=== PATIENT | male | born 1985 | race African-American/Black ===

== ENCOUNTER 2018-10-28 14:04 | Inpatient (IN) | payer OTHER ==
[2018-10-28 15:47] VITALS: BMI 34.2
--- NOTE | 2018-10-28 19:20 | HP ---
CIWA Score - Admission Criteria [facility]ASAS Guidelines: Admission for Medically Managed Detox: Requires at least one of the followin. CIWA greater than 12 2. Seizures within the past 24 hours 3. Delirium tremens within the past 24 hours 4. Hallucinations within the past 24 hours 5. Acute intervention needed for co occurring medical disorder 6. Acute intervention needed for co occurring psychiatric disorder 7. Severe withdrawal that cannot be handled at a lower level of care (continued vomiting, continued diarrhea, abnormal vital signs) requiring intravenous medication and/or fluids 8. Admission ROS S - HPI Chief Complaint: rehab from K2 33 yo old with schizoaffective d/o, anxiety, bipoar, resident of [facility] facility- here b/c he is tired of using multiple illicit substances that are freely available at the facility. h/o diabetes on insulin K2- 2-3 cigs/day THC- 2 blunts/day cocaine- occ use- was offered 2 days ago alcohol occ use heroin- never used DUR- no meds Allergies/Adverse Reactions: Allergies Allergy/AdvReac Type Severity Reaction Status Date / Time Fish Containing Products Allergy Intermediate Nausea Verified 10/28/18 15:35 - Ebola screening Have you traveled outside of the country in the last 21 days: No Have you had contact with anyone from an Ebola affected area: No Do you have a fever: No Patient History - Patient Medical History Hx Diabetes: Yes Hx Bipolar Disorder: Yes Hx Schizophrenia: Yes - Patient Surgical History Past Surgical History: No - PPD History Previous Implant?: No Documented Results: Negative w/o proof - Smoking Cessation Smoking history: Current every day smoker Have you smoked in the past 12 months: Yes Aproximately how many cigarettes per day: 5 Hx Chewing Tobacco Use: No Initiated information on smoking cessation: Yes 'Breaking Loose' booklet given: 10/28/18 - Substances abused K2/Spice Substance route: Smoking Frequency: Daily Amount used: $40 Age of first use: 27 Date of last use: 10/28/18 Cocaine Substance route: Inhalation Frequency: 1-2 times per week Amount used: 1bag Age of first use: 21 Date of last use: 10/25/18 Marijuana/Hashish Substance route: Smoking Frequency: Daily Amount used: $10 Age of first use: 15 Date of last use: 10/26/18 Family Disease History - Family Disease History Family History: Unable to Obtain (pt is adopted) Admission Physical Exam BHS - Vital Signs Vital Signs: Vital Signs - 24 hr 10/28/18 15:27 Temperature 97.4 F L Pulse Rate 72 Respiratory 18 Rate Blood Pressure 102/66 - Physical General Appearance: Yes: Within Normal Limits, Obese HEENTM: Yes: Within Normal Limits, EOMI, Hearing grossly Normal, Normocephalic, Normal Voice, DANK Respiratory: Yes: Within Normal Limits, Lungs Clear Neck: Yes: Within Normal Limits Cardiology: Yes: Within Normal Limits, Regular Rate Abdominal: Yes: Within Normal Limits Genitourinary: Yes: Within Normal Limits Back: Yes: Within Normal Limits Musculoskeletal: Yes: Within Normal Limits Extremities: Yes: Within Normal Limits Neurological: Yes: Within Normal Limits, process description writer II-XII NML intact, Fully Oriented Integumentary: Yes: Within Normal Limits, Normal Color Lymphatic: Yes: Within Normal Limits - Diagnostic (1) Schizoaffective disorder Current Visit: Yes Status: Acute (2) Personality disorder Current Visit: Yes Status: Acute (3) Bipolar 1 disorder Current Visit: Yes Status: Acute (4) Diabetes Current Visit: Yes Status: Acute (5) Marijuana smoker Current Visit: Yes Status: Acute (6) Alcohol use Current Visit: Yes Status: Acute (7) Cocaine abuse Current Visit: Yes Status: Acute Breathalyzer - Breathalyzer Breathalyzer: 0 Urine Drug Screen - Test Device Lot number: [id number] Expiration date: 07/10/20 - Control Is test valid?: Yes - Results Drug screen NEGATIVE: Yes Inpatient Rehab Admission - Rehab Decision to Admit Inpatient rehab admission?: Yes - Initial Determination Are CD services needed?: Yes Free of communicable disease: Yes Not in need of hospitalization: Yes - Rehab Admission Criteria Previous failed treatment: Yes Poor recovery environment: Yes Comorbidities: Yes Lacks judgement: Yes Patient is meeting Inpatient Rehab admission criteria:: Yes (K2 rehab)
[2018-10-28] MEDS ORDERED: ACETAMINOPHEN 325 MG TABLET (FP) PO PRN (19:26)
[2018-10-28] MEDS ORDERED: hydrOXYzine PAMOATE 25 MG CAPSULE (FP) PO PRN (19:26)
[2018-10-28] MEDS ORDERED: MAG HYDROX/AL HYDROX/SIMETH 30 ML UNIT-DOSE CUP PO PRN (19:26)
[2018-10-28] MEDS ORDERED: P-EPHED 60MG/TRIPROLIDI 2.5MG TABLET PO PRN (19:26)
[2018-10-28] MEDS ORDERED: MAGNESIUM HYDROX 2400MG/30ML ORAL SUSPENSION 30 ML CUP PO PRN (19:26)
[2018-10-28] MEDS ORDERED: MAGNESIUM CITRATE 300 ML BOTTLE PO PRN (19:26)
[2018-10-28] MEDS ORDERED: IBUPROFEN 400 MG TABLET (FP) PO PRN (19:26)
[2018-10-28] MEDS ORDERED: guaiFENesin 200 MG/10 ML 10 ML UNIT-DOSE CUPS PO PRN (19:26)
[2018-10-28] MEDS ORDERED: LOPERAMIDE HCL 2 MG CAPSULE PO PRN (19:26)
[2018-10-28] MEDS ORDERED: MENTHOL/PHENOL 1 EACH UD MM PRN (19:26)
[2018-10-28] MEDS: QUEtiapine FUMARATE 50 MG TABLET PO SCH (21:08)
[2018-10-28] MEDS: DIVALPROEX SODIUM 500 MG TABLET E.C. PO SCH (21:08)
[2018-10-28] MEDS: THIAMINE HCL 100 MG TABLET (FP) PO SCH (21:08)
[2018-10-28] MEDS ORDERED: MELATONIN 5 MG TABLETS PO PRN (22:00)
[2018-10-29] MEDS: INSULIN SLIDING SCALE (NOVOLOG) 1 VIAL SQ SCH ×3 (07:14→16:52)
[2018-10-29] MEDS: PRENATAL VITAMINS W/ FOLIC ACID TABLET (FP) PO SCH (09:51)
[2018-10-29] MEDS: DIVALPROEX SODIUM 500 MG TABLET E.C. PO SCH ×2 (09:51→21:02)
[2018-10-29] MEDS ORDERED: busPIRone HCL 10 MG TABLET (FP) PO SCH (10:00)
--- NOTE | 2018-10-29 10:04 | CONSULT ---
[facility] Psychiatric Consult - Data Date of interview: 10/29/18 Admission source: [facility] Identifying data: Mr Mckeon is a 33 years old single Black male, unemployed receiving SSI, living in transitional living residence seeking rehab treatment for cocaine and cannabis Substance Abuse History: Reports history of cocaine, marijuana and k2/spice use. Refer to addiction counselor's summary for further information Medical History: Significant for type 2 diabetes mellitus. Smokes 5 cigarettes dailt Psychiatric History: Reports that his first psychiatric contact was in his early 20's when he was admitted to [facility], diagnosed with Schizoaffective Disorder and started on medications. Reports multiple subsequent psychiatric admissions to various institutions including [facility], [facility], [facility],, [facility] and most recently in August 2018 to [facility]. He was discharged on Zoloft 200 mg/day, Depakote 1000 mg/bid, Buspar 10 mg/tid, Zyprexa 15 mg/bid, Klonopin 0.5 mg/bid and cogentin 0.5 mg/bid and referred to [facility]PD follow up. Told public relations writer that he relapsed as soon as he was discharged and did not follow with discharge instruction. Reports non adherence to OPD care. Reports multiple suicidal attempts by mostly overdose on medications. At present , reports experiencing psychotic, manic or depressive symptoms, S/H ideations. However, report sleeping poorly Physical/Sexual Abuse/Trauma History: Denies history of emotional, physical or sexual as well as DV relationship. No service Additional Comment: Denies criminal history Mental Status Exam - Mental Status Exam Alert and Oriented to: Time, Place, Person Cognitive Function: Fair Patient Appearance: Disheveled Mood: Hopeful, Euthymic Affect: Blunted Patient Behavior: Cooperative Voice Loudness: Normal Thought Process: Intact Thought Disorder: Not Present Hallucinations: Denies Suicidal Ideation: Denies Homicidal Ideation: Denies Insight/Judgement: Fair Sleep: Poorly Appetite: Good Muscle strength/Tone: Normal Gait/Station: Normal Psychiatric Findings - Problem List ([place] 1, 2,3) (1) Schizoaffective disorder Current Visit: Yes Status: Chronic (2) Substance-induced sleep disorder Current Visit: Yes Status: Acute (3) Cannabis dependence Current Visit: Yes Status: Acute (4) Nicotine dependence Current Visit: Yes Status: Chronic (5) Type 2 diabetes mellitus Current Visit: Yes Status: Acute - Initial Treatment Plan Initial Treatment Plan: 1) Continue Zoloft 200 mg po daily, Zyprexa 15 mg po BID , Cogentin 1 mg po BID, Buspar 10 mg po TID. 2) Start Depakote 500 mg po bid. 3) Valproic Acid level on 10/30/18. 4) Continue inpatient rehabilitation
[2018-10-29] MEDS ORDERED: SERTRALINE HCL 50 MG TABLET (FP) PO SCH (10:30)
[2018-10-29] MEDS: SERTRALINE HCL 50 MG TABLET (FP) PO SCH (11:44)
[2018-10-29] MEDS: BENZTROPINE MESYLATE 1 MG TABLET (FP) PO SCH ×2 (11:44→21:02)
[2018-10-29] MEDS: OLANZapine 7.5 MG TABLET PO SCH ×2 (11:44→21:02)
[2018-10-29 11:46] LABS: HEMATOCRIT 37.8 % (35.4-49); HEMOGLOBIN 12.1 GM/dL (11.7-16.9); MCH 25.3 pg (25.7-33.7); MCHC 32.2 g/dl (32.0-35.9); MEAN CELL VOLUME 78.7 fl (80-96); MEAN PLT VOLUME 9.5 fl (7.5-11.1); PLATELET COUNT 247 K/MM3 (134-434); WHITE BLOOD COUNT 4.7 K/mm3 (4.0-10.0)
[2018-10-29] MEDS ORDERED: PNEUMOCOCCAL 23 VACCINE 0.5 ML VIAL IM ONE (12:00)
[2018-10-29] MEDS ORDERED: PNEUMOC 13-VAL CONJ-DIP CRM/PF 0.5 ML DISP.SYRIN IM ONE (12:00)
[2018-10-29 12:41] LABS: ALBUMIN 3.3 g/dl (3.4-5.0); BILIRUBIN,TOTAL 0.2 mg/dL (0.2-1); CALCIUM 8.9 mg/dL (8.5-10.1); CREATININE 0.9 mg/dL (0.55-1.3); POTASSIUM 4.1 mmol/L (3.5-5.1); TOT PROT 6.8 g/dl (6.4-8.2)
[2018-10-29] MEDS: busPIRone HCL 10 MG TABLET (FP) PO SCH ×2 (14:28→21:02)
[2018-10-29] MEDS ORDERED: INSULIN (NOVOLOG) ASPART 100 UNITS/ML 10ML VIAL ONE (16:29)
[2018-10-29 18:55] LABS: URINE APPEARANCE TURBID; URINE BILIRUBIN NEGATIVE (NEGATIVE); URINE COLOR YELLOW; URINE GLUCOSE (UA) NEGATIVE (NEGATIVE); URINE KETONE TRACE (NEGATIVE); URINE LEUK ESTERASE NEGATIVE (NEGATIVE); URINE NITRITE NEGATIVE (NEGATIVE); URINE PROTEIN NEGATIVE (NEGATIVE); URINE UROBILINOGEN 0.2 mg/dL (0.2-1.0)
[2018-10-29] MEDS: QUEtiapine FUMARATE 50 MG TABLET PO SCH (21:01)
[2018-10-29] MEDS: THIAMINE HCL 100 MG TABLET (FP) PO SCH (21:02)
[2018-10-30 06:52] VITALS: TEMP 98
[2018-10-30] MEDS: busPIRone HCL 10 MG TABLET (FP) PO SCH ×3 (06:52→21:06)
[2018-10-30] MEDS: OLANZapine 7.5 MG TABLET PO SCH ×2 (09:46→21:05)
[2018-10-30] MEDS: BENZTROPINE MESYLATE 1 MG TABLET (FP) PO SCH ×2 (09:46→21:06)
[2018-10-30] MEDS: DIVALPROEX SODIUM 500 MG TABLET E.C. PO SCH ×2 (09:46→21:06)
[2018-10-30] MEDS: SERTRALINE HCL 50 MG TABLET (FP) PO SCH (09:46)
[2018-10-30] MEDS: PRENATAL VITAMINS W/ FOLIC ACID TABLET (FP) PO SCH (09:46)
[2018-10-30] MEDS: INSULIN SLIDING SCALE (NOVOLOG) 1 VIAL SQ SCH ×2 (12:00→17:02)
--- NOTE | 2018-10-30 13:13 | PN ---
[facility] Progress Note Note: PT WAS HEARD IN HIS ROOM SINGING LOUDLY WITH ELATED FEELINGS WITH A BOOK IN FRONT OF HIM WHILE SITTING ON THE CHAIR IN FRONT OF THE TABLE. TWENTY MINUTES LATER, PT STARTED CRYING AND UNABLE TO BE UNCONSOLED. PT STATING "I DON'T KNOW WHY THE MEDICINE IS NOT WORKING IN MY HEAD". "I WANT MY MOM, I CAN'T DO THIS ANYMORE". PT WAS SEEN YESTERDAY BY DR. RAMOS AND CURRENTLY ON MEDS(SEE ORDERS). NO S/H/I VERBALIZED. Vital Signs 10/30/18 06:51 Temperature 98.0 F Pulse Rate 74 Respiratory 18 Rate Blood Pressure 102/57 L PLAN:PSYCH RE-EVALUATION NOW.
--- NOTE | 2018-10-30 14:24 | PN ---
Psychiatric Progress Note Vital Signs: Vital Signs Period Temp Pulse Resp BP Sys/Barrett Pulse Ox Last 24 Hr 98.0 F 74 16-18 102/57 Date of Session: 10/30/18 Chief Complaint:: " I don't want to go back to my other residence" HPI: Patient tearful, anxious, and tearful concerning returning to his place of residence after discharge. ROS: Patient coherent, alert and oriented X3. Current Medications: Active Medications Generic Name Dose Route Start Last Admin Trade Name Freq PRN Reason Stop Dose Admin Acetaminophen 650 mg 10/28/18 19:26 Tylenol - PO Q4H PRN FEVER Al Hydroxide/Mg Hydroxide 30 ml 10/28/18 19:26 Mylanta Oral Suspension - PO Q6H PRN DYSPEPSIA Benztropine Mesylate 1 mg 10/29/18 10:30 10/30/18 09:46 Cogentin - PO 1 mg BID PARESH Administration Buspirone HCl 10 mg 10/29/18 14:00 10/30/18 06:52 Buspar - PO 10 mg TID PARESH Administration Diphenhydramine HCl 50 mg 10/30/18 14:13 Benadryl - PO 10/30/18 14:14 ONCE ONE Divalproex Sodium 500 mg 10/28/18 22:00 10/30/18 09:46 Depakote - PO 500 mg BID PARESH Administration Eucalyptus/Menthol/Phenol/Sorbitol 1 each 10/28/18 19:26 Cepastat Lozenge - MM Q4H PRN SORE THROAT Guaifenesin 10 ml 10/28/18 19:26 Robitussin - PO Q6H PRN COUGH Hydroxyzine Pamoate 25 mg 10/28/18 19:26 10/28/18 21:08 Vistaril - PO 25 mg Q4H PRN Administration AGITATION Ibuprofen 400 mg 10/28/18 19:26 Motrin - PO Q6H PRN Pain level 4-6 Insulin Aspart 1 vial 10/29/18 07:00 10/30/18 12:00 Novolog Vial Sliding Scale - SQ Not Given TIDAC [facility] Protocol Loperamide HCl 4 mg 10/28/18 19:26 Imodium - PO Q6H PRN DIARRHEA Magnesium Citrate 300 ml 10/28/18 19:26 Citroma - PO Q48H PRN CONSTIPATION Magnesium Hydroxide 30 ml 10/28/18 19:26 Milk Of Magnesia - PO DAILY PRN CONSTIPATION Melatonin 5 mg 10/28/18 22:00 Melatonin PO HS PRN INSOMNIA Olanzapine 15 mg 10/29/18 10:30 10/30/18 09:46 Zyprexa - PO 15 mg BID PARESH Administration Multivit/Folic Acid/Iron 1 tab 10/29/18 10:00 10/30/18 09:46 Vitamins (Sjr) - PO 1 tab DAILY PARESH Administration Pseudoephedrine/Triprolidine 1 combo 10/28/18 19:26 Actifed - PO TID PRN NASAL CONGESTION Quetiapine Fumarate 50 mg 10/28/18 22:00 10/29/18 21:01 Seroquel - PO 50 mg HS PARESH Administration Quetiapine Fumarate 50 mg 10/30/18 14:13 Seroquel - PO 10/30/18 14:14 ONCE ONE Sertraline HCl 200 mg 10/29/18 10:45 10/30/18 09:46 Zoloft - PO 200 mg DAILY PARESH Administration Thiamine HCl 100 mg 10/28/18 22:00 10/29/18 21:02 Vitamin B1 - PO 100 mg HS PARESH Administration Medication(s) Change(s): Yes. One time dose of seroquel 50mg + benadryl 50mg Current Side Effect: No Lab tests ordered: No Lab tests reviewed: Yes Provider note:: Stat consult ordered after patient became tearful, sad, and difficult to redirect. Dr. Mosqueda's note read and appreciated. Upon approach patient appeared highly upset, tearful, but was redirectable. Patient stated to editorial writer, " i can't live like this anymore. I do not want to go back to the residence i am living at. All they do over there is use drugs. No one wants to get better." Patient reports ongoing negative thoughts secondary to his place of residence. Stated to editorial writer i have demons in my head because i keep thinking about going back there. I want to improve and i want to work someday." Patient anxious and restless. Patient denies auditory and visual hallucinatoins. States the demons are the people in the residential due to their lack of motivation to improve their lifestlye. Patient denies thoughts or urges to hurt himself but is afraid that if he is discharge to his current place of residence he will continue to use illicit subtance which he states can lead to his due to his chronic history of substance abuse. Manager Cosmetic able to discuss case with Kirby. Kirby and editorial writer able to approach patient together and discuss alternative options. Patient has agreed to consent for ACT team to visit him and is also agreeable to possibly locating to another place of residence which at first he was opposed to. Patient able to de escalate. Patient is compliant with current medication regiman and is willing to accept additional medications. Will order one time dose of seroquel 50mg + benadryl 50mg. In addition will d/c vistaril 50mg q4h and order vistaril 50mg q4h. Patient denies thoughts or urges to hurt himself or others. 1:1 Observation and transfer to a psychiatric facility is NOT required at this time. Total face to face time:: 45 Mental Status Exam - Mental Status Exam Alert and Oriented to: Time, Place, Person Cognitive Function: Good Patient Appearance: Well Groomed Mood: Sad, Anxious Affect: Mood Congruent Patient Behavior: Crying, Talkative Speech Pattern: Clear, Garbled (Patient crying therefore difficult to understand but able to de escalate and speak clearly.) Voice Loudness: Mildly Loud Thought Process: Goal Oriented Thought Disorder: Not Present Hallucinations: Denies Suicidal Ideation: Denies Homicidal Ideation: Denies Insight/Judgement: Poor Sleep: Fair Appetite: Fair Muscle strength/Tone: Normal Gait/Station: Normal Psychiatric Treatment Plan - Problem List (1) Cannabis dependence Current Visit: Yes (2) Substance-induced sleep disorder Current Visit: Yes (3) Nicotine dependence Current Visit: Yes (4) Schizoaffective disorder Current Visit: Yes
[2018-10-30] MEDS ORDERED: hydrOXYzine PAMOATE 50 MG CAPSULE (FP) PO PRN (14:28)
[2018-10-30] MEDS ORDERED: QUEtiapine FUMARATE 50 MG TABLET PO ONE (14:30)
[2018-10-30] MEDS ORDERED: diphenhydrAMINE HCL 25 MG CAPSULE (FP) PO ONE (14:30)
[2018-10-30] MEDS: THIAMINE HCL 100 MG TABLET (FP) PO SCH (21:06)
[2018-10-30] MEDS: QUEtiapine FUMARATE 50 MG TABLET PO SCH (21:06)
[2018-10-31] MEDS: INSULIN SLIDING SCALE (NOVOLOG) 1 VIAL SQ SCH ×3 (02:42→12:06)
[2018-10-31] MEDS: busPIRone HCL 10 MG TABLET (FP) PO SCH (06:15)
[2018-10-31 06:44] VITALS: BP 106/69; PULSE 66
[2018-10-31] MEDS: OLANZapine 7.5 MG TABLET PO SCH (10:03)
[2018-10-31] MEDS: DIVALPROEX SODIUM 500 MG TABLET E.C. PO SCH (10:03)
[2018-10-31] MEDS: PRENATAL VITAMINS W/ FOLIC ACID TABLET (FP) PO SCH (10:03)
[2018-10-31] MEDS: BENZTROPINE MESYLATE 1 MG TABLET (FP) PO SCH (10:03)
--- NOTE | 2018-10-31 10:39 | PN ---
[facility] Progress Note (SOAP) Subjective: PT WAS PRESENTED BY COUNSELOR THAT PT IS DISCHARGING TODAY. PT REPORTS HE HAS RESOURCES HE IS GOING BACK TO AT [facility] AND [facility]. PT REPORTS HE IS MEDICALLY MANAGED BY PCP AND ACT TEAM AT HIS RESIDENCE. PT IS ALERT O X 3. DENIES S/H/I. Objective: 10/31/18 11:21 Vital Signs - 24 hr 10/31/18 10/31/18 10/31/18 00:30 03:30 06:44 Temperature 98.0 F Pulse Rate 66 Respiratory 18 18 18 Rate Blood Pressure 106/69 Laboratory Tests 10/28/18 10/29/18 10/29/18 21:10 06:25 08:15 WBC 4.7 RBC 4.80 Hgb 12.1 Hct 37.8 MCV 78.7 L MCH 25.3 L MCHC 32.2 RDW 15.0 Plt Count 247 MPV 9.5 Sodium Potassium Chloride Carbon Dioxide Anion Gap BUN Creatinine Est GFR (CKD-EPI)AfAm Est GFR (CKD-EPI)NonAf POC Glucometer 125 127 Random Glucose Calcium Total Bilirubin AST ALT Alkaline Phosphatase Total Protein Albumin Urine Color Urine Appearance Urine pH Ur Specific [place] Urine Protein Urine Glucose (UA) Urine Ketones Urine Blood Urine Nitrite Urine Bilirubin Urine Urobilinogen Ur Leukocyte Esterase Valproic Acid RPR Titer HIV 1&2 Antibody Screen HIV P24 Antigen 10/29/18 10/29/18 10/29/18 08:15 08:15 08:15 WBC RBC Hgb Hct MCV MCH MCHC RDW Plt Count MPV Sodium 144 Potassium 4.1 Chloride 109 H Carbon Dioxide 28 Anion Gap 8 BUN 9.0 Creatinine 0.9 Est GFR (CKD-EPI)AfAm 131.44 Est GFR (CKD-EPI)NonAf 113.41 POC Glucometer Random Glucose 119 H Calcium 8.9 Total Bilirubin 0.2 AST 15 ALT 24 Alkaline Phosphatase 63 Total Protein 6.8 Albumin 3.3 L Urine Color Urine Appearance Urine pH Ur Specific [place] Urine Protein Urine Glucose (UA) Urine Ketones Urine Blood Urine Nitrite Urine Bilirubin Urine Urobilinogen Ur Leukocyte Esterase Valproic Acid RPR Titer Nonreactive HIV 1&2 Antibody Screen Negative HIV P24 Antigen Negative 10/29/18 10/29/18 10/29/18 11:46 15:40 16:51 WBC RBC Hgb Hct MCV MCH MCHC RDW Plt Count MPV Sodium Potassium Chloride Carbon Dioxide Anion Gap BUN Creatinine Est GFR (CKD-EPI)AfAm Est GFR (CKD-EPI)NonAf POC Glucometer 83 136 Random Glucose Calcium Total Bilirubin AST ALT Alkaline Phosphatase Total Protein Albumin Urine Color Yellow Urine Appearance Turbid Urine pH 5.0 Ur Specific [place] 1.037 H Urine Protein Negative Urine Glucose (UA) Negative Urine Ketones Trace H Urine Blood Negative Urine Nitrite Negative Urine Bilirubin Negative Urine Urobilinogen 0.2 Ur Leukocyte Esterase Negative Valproic Acid RPR Titer HIV 1&2 Antibody Screen HIV P24 Antigen 10/30/18 10/30/18 10/30/18 06:50 08:20 11:59 WBC RBC Hgb Hct MCV MCH MCHC RDW Plt Count MPV Sodium Potassium Chloride Carbon Dioxide Anion Gap BUN Creatinine Est GFR (CKD-EPI)AfAm Est GFR (CKD-EPI)NonAf POC Glucometer 99 85 Random Glucose Calcium Total Bilirubin AST ALT Alkaline Phosphatase Total Protein Albumin Urine Color Urine Appearance Urine pH Ur Specific [place] Urine Protein Urine Glucose (UA) Urine Ketones Urine Blood Urine Nitrite Urine Bilirubin Urine Urobilinogen Ur Leukocyte Esterase Valproic Acid 50.0 RPR Titer HIV 1&2 Antibody Screen HIV P24 Antigen 10/30/18 10/31/18 17:00 06:13 WBC RBC Hgb Hct MCV MCH MCHC RDW Plt Count MPV Sodium Potassium Chloride Carbon Dioxide Anion Gap BUN Creatinine Est GFR (CKD-EPI)AfAm Est GFR (CKD-EPI)NonAf POC Glucometer 151 173 Random Glucose Calcium Total Bilirubin AST ALT Alkaline Phosphatase Total Protein Albumin Urine Color Urine Appearance Urine pH Ur Specific [place] Urine Protein Urine Glucose (UA) Urine Ketones Urine Blood Urine Nitrite Urine Bilirubin Urine Urobilinogen Ur Leukocyte Esterase Valproic Acid RPR Titer HIV 1&2 Antibody Screen HIV P24 Antigen COPY OF LAB GIVEN TO PT FOR FOLLOW UP WITH PRIMARY CARE PROVIDER. Assessment: 10/31/18 11:23 NAD MEDICALLY STABLE Plan: FOLLOW UP WITH CD AFTERCARE RECOMMENDATIONS FOLLOW UP WITH WITH YOUR PCP/ACT TEAM FOR MEDICAL MANAGEMENT.
[2018-10-31] MEDS: SERTRALINE HCL 50 MG TABLET (FP) PO SCH (10:57)
--- NOTE | 2018-10-31 11:09 | PN ---
[facility] Progress Note Note: Patient is scheduled for discharge today. Scripts for 30 days supply of medications(Zoloft 200 mg/day, Zyprexa 15 mg/bid, Cogentin 1 mg/bid, Buspar 15 mg/tid, Depakote 500 mg/bid) are electronically transmitted to [facility] at [address] [place] [address]
== END 2018-10-31 12:20 | disposition home or self-care (01) | DRG 772 ==
LOC: YASAS 14:04 → Y5N 20:00
PROVIDERS: ADMIT Neuromusculoskeletal Medicine & OMM; ATTEND Neuromusculoskeletal Medicine & OMM
PROC: HZ42ZZZ Group Counseling for Substance Abuse Treatment, Cognitive-Behavioral (ICD-10-PCS; principal; 2018-10-28)
DX: F12.20 Cannabis dependence, uncomplicated (principal); F19.20 Other psychoactive substance dependence, uncomplicated; F14.10 Cocaine abuse, uncomplicated; F19.282 Other psychoactive substance dependence with psychoactive substance-induced sleep disorder; F25.9 Schizoaffective disorder, unspecified; F31.9 Bipolar disorder, unspecified; F41.9 Anxiety disorder, unspecified; E11.9 Type 2 diabetes mellitus without complications; Z91.013 Allergy to seafood
CPT/HCPCS: 36415; 80053; 80164; 81003; 82962; 85027; 86593; 87389